=== PATIENT | male | born 1990 | race Caucasian/White ===

== ENCOUNTER → 2020-05-16 10:50 | Outpatient (BNVA) | payer BC, SELFPAY | PROVIDERS: Family Provider Family Medicine; Visit Provider Nurse Practitioner Family | DX: Z11.59 Encounter for screening for other viral diseases (principal) | CPT/HCPCS: 87426 ==

== ENCOUNTER 2020-06-16 13:23 | Outpatient (CLI) | payer BC, SELFPAY ==
--- NOTE | 2020-06-16 14:34 | XR_ITS ---
WS: [id number] Exam: XR foot RT min 3V* [id number] Date/Time of Exam: 06/16/2020 2:34 PM Reason For Exam: RIGHT FOOT PAIN Comparison 03/27/2016. Findings: The foot was examined in multiple views and reveals no fractures or displacements of bone. No bony a nomalies are noted. The bony elements are in adequate alignment. The joint spaces are smooth and eq uidistant. XR/XR foot RT min 3V* [id number] IMPRESSION: Negative right foot.
--- NOTE | 2020-06-16 14:34 | XR_ITS ---
WS: [id number] Exam: XR ankle RT min 3V* [id number] Date/Time of Exam: 06/16/2020 2:34 PM Reason For Exam: RIGHT FOOT PAIN No acute fracture or dislocation. Healed fracture of the lower fibular metaphysis. The ankle mortise is well-maintained. Normal soft tissues. XR/XR ankle RT min 3V* [id number] IMPRESSION: 1. No acute fracture or dislocation. 2. Old healed lower fibular fracture.
== END 2020-06-16 13:24 | disposition home or self-care (01) ==
PROVIDERS: PCP Family Medicine; Visit Provider Family Medicine
DX: M79.671 Pain in right foot (principal)
CPT/HCPCS: 73610; 73630

== ENCOUNTER 2020-11-16 15:48 | Outpatient (CLI) | payer OTHER, SELFPAY ==
--- NOTE | 2020-11-16 15:55 | XR_ITS ---
WS: [id number] Chest 2 views, 11/16/2020 Clinical Data: COUGH, CHRONIC, DYSPNEA Comparison: PA and lateral chest, 09/05/2011. Findings: No nodules, masses or effusions are seen. The heart is normal. The pulmonary vascularity is not increased. No pneumonia or pneumothorax is seen. XR/XR chest 2V* [id number] Impression: Negative chest.
== END 2020-11-16 15:49 | disposition home or self-care (01) ==
PROVIDERS: PCP Family Medicine; Visit Provider Family Medicine
DX: R05 Cough (principal); R06.00 Dyspnea, unspecified
CPT/HCPCS: 71046

== ENCOUNTER → 2020-12-14 16:25 | Outpatient (BNVA) | payer OTHER, SELFPAY | PROVIDERS: PCP Family Medicine; Visit Provider Family Medicine | DX: Z01.812 Encounter for preprocedural laboratory examination (principal); Z20.822 Contact with and (suspected) exposure to COVID-19 | CPT/HCPCS: 87635 ==

== ENCOUNTER 2020-12-20 06:50 | Outpatient (CLI) | payer OTHER, SELFPAY ==
--- NOTE | 2020-12-20 11:07 | PFTS_ITS ---
Date of Study:12/20/20 Date of Dictation: 12/23/2020 MECHANICS: Forced vital capacity (FVC) is normal. Forced expiratory volume in one second (FEV1) is normal. FEV1/FVC is normal. Postbronchodilator study not performed.. FLOW VOLUME LOOP: normal. LUNG VOLUMES: Total lung capacity (TLC) is normal.. Residual volume (RV) is normal.. DIFFUSING CAPACITY FOR CARBON MONOXIDE: normal. . INTERPRETATION: The pulmonary function tests are normal. MTDD
== END 2020-12-20 06:51 | disposition home or self-care (01) ==
LOC: RT 06:53
PROVIDERS: PCP Family Medicine; Visit Provider Family Medicine
DX: R05 Cough (principal); R06.02 Shortness of breath
CPT/HCPCS: 94010; 94726; 94729

== ENCOUNTER 2021-04-07 19:50 | Emergency (ER) | payer OTHER, SELFPAY ==
[2021-04-07 20:32] VITALS: BP 122/82; PULSE 63; RESP 18; TEMP 36.6; O2SAT 98; BMI 29.2
--- NOTE | 2021-04-07 21:20 | ED_ITS ---
Documented by User: PERRY Cameron 04/07/21 22:34 HPI - Male Genitourinary General: Chief complaint: Urogenital-Male Stated complaint: R testical is swollen an painful Time Seen by Provider: 04/07/21 20:58 History of Present Illness: HPI Narrative: Right testicle is painful. Patient states he lifted a generator by himself earlier today and then pain in the testicle started after that. Patient does have a history of epididymitis to the right testicle. Patient has no swelling to the testicle says it just hurts. Denies any sexual contact outside the relationship with his . Has a history of abdominal wall hernia. MD Complaint: testicle pain Onset (ago): hour(s) Duration: constant Radiation: right testicle Severity: moderate Severity scale (1-10): 4 Quality: aching Relieving factors: none Exacerbating factors: none Associated symptoms: Reports no associated symptoms; Deny nausea or vomiting Review of Systems Const: Denies: fever(s), chills or body aches Eyes: Denies: change in vision or blurry vision ENMT: Denies: throat pain or nasal congestion Card: Denies: chest pain or dyspnea on exertion Resp: Denies: dyspnea, productive cough or non-productive cough GI: Denies: abdominal pain, nausea or vomiting : Reports: testicular pain; Denies: difficulty urinating, penile discharge, testicular mass or scrotal swelling Musc: Denies: extremity pain Skin/Breast: Denies: rash Neuro: Denies: headache(s) Psych: Denies: anxiety or depression Jacobo/Lymph: Denies: easy bruising PFS ED PFSH: Medical History (Updated 04/07/21 @ 22:27 by PERRY Cameron) Depression Surgical History (Updated 06/23/20 @ 13:43 by Imani Malone DO) H/O knee surgery Family History Other Diabetes Social History (Updated 06/23/20 @ 13:24 by Tiffany May LPN) Smoking and tobacco status: never smoked Alcohol intake: never Physical Exam Const: COMMON NORMALS: no acute distress, average body habitus and patient oriented x3 HENMT: COMMON NORMALS: normocephalic HEAD & SCALP: normal to inspection and normocephalic FACE & SINUS: normal facial exam Eye: COMMON NORMALS: conjunctivae normal GENERAL EYE: appearance normal, both eyes and all related structures CONJUNCTIVA: Yes conjunctivae normal Neck/C-Spine: COMMON NORMALS: no JVD Chest: COMMONS NORMALS: normal inspection of the chest Resp: COMMON NORMALS: normal respiratory effort and clear to auscultation bilaterally AUSCULTATION: clear to auscultation bilaterally Cardio: COMMON NORMALS: no JVD, regular rate and regular rhythm RATE: regular rate RHYTHM: regular rhythm GI: COMMON NORMALS: Normal to inspection, nondistended, normoactive bowel sounds present (No evidence of hernia noted.) : COMMON NORMALS: Yes scrotum normal and Yes no scrotal swelling PENIS: normal penis SCROTUM: Yes testes descended bilaterally, No inguinal hernia, No Scrotal tenderness present and No erythematous TESTES: No Enlarged testicle(s) present, No testicular swelling, Yes testicular tenderness, No testicular mass, No epididymal mass and Yes epididymal tenderness (Right side) Extremity: COMMON NORMALS: normal to inspection and full ROM Neuro: COMMON NORMALS: patient oriented x3 Course Vital Signs: Vital signs: Vital Signs Temperature 97.9 F 04/07/21 22:30 Pulse Rate 58 L 04/07/21 22:30 Respiratory Rate 16 04/07/21 22:30 Blood Pressure 125/64 04/07/21 22:30 Pulse Oximetry 97 04/07/21 22:30 MDM - Male MDM Narrative: Medical decision making narrative: Patient with past history epididymitis. Patient had onset of testicular pain today Saturday 3 to 5 hours ago. Patient has tenderness to epididymis. No swelling to the testicle. Went over lab results and clinical signs symptoms with Dr. Turk. Patient significant relief with pain medication. Discussed case. Patient given strict instructions to follow-up back of the ER if he has worsening symptoms this morning, such as severe pain. Swelling. Worsening of present symptoms. Patient verbalized he understood these instructions patient [place] 5 miles from the hospital and will return immediately if he has any symptoms he states. Lab Data: Labs: Lab Results 04/07/21 21:30 Urine Color Yellow (Yellow) Urine Appearance Sl hazy (CLEAR) Urine pH 6 (5-7) Ur Specific Gravit y 1.020 (1.005-1.030) Urine Protein Neg (Negative) Urine Glucose (UA) Norm (Normal) Urine Ketones Negative (Negative) Urine Blood 2+ H (Negative) Urine Nitrate Negative (Negative) Urine Bilirubin Neg (Negative) Urine Urobilinogen Norm mg/dL mg/dL (Negative) Ur Leukocyte Nikki ase Negative (Negative) Urine RBC 15-25 /hpf H /hpf (0-2) Urine WBC 0-4 /hpf H /hpf (0-5) Ur Squamous Epith Cells 0-4 /hpf H /hpf (0-5) Amorphous Sediment 3+ /hpf /hpf Urine Bacteria Trace /hpf /hpf (NONE) Discharge Plan Discharge Patient Disposition: Home Clinical Impression: Epididymitis Hematuria Qualifiers: Hematuria type: benign essential microscopic Qualified Code(s): R31.1 - Benign essential microscopic hematuria Condition: Stable Prescriptions: New levofloxacin 500 mg tablet 500 mg PO DAILY 7 Days Qty: 7 RF: 0 tramadol 50 mg tablet 50 mg PO TID PRN (Reason: pain) Qty: 7 RF: 0 No Action amoxicillin 875 mg tablet 875 mg PO BID 10 Days Qty: 20 RF: 0 sertraline 25 mg tablet 25 mg PO DAILY RF: 0 Discharge Orders: Discharge ED (Routine); Ordered 04/07/21 Ordered By: Josep Chang Referrals: Arvind Chung DO [Primary Care Provider] - Discharge Diet: Usual diet Discharge Activity: Increase activity as tolerated Patient Instructions: Epididymitis (ED) Activity Restrictions/Additional Instructions: Take medication as directed. Follow-up your family medical provider repeat urine in 7 to 10 days. If worsening symptoms occur during these morning hours severe pain, swelling testicle, or other worsening symptoms please return the ER immediately. Coding Level of Care Code ED Rope Coiling Machine Operator for Chg Fwd Exam Comprehensive Documented by User: Bill Turk MD 04/10/21 21:29 HPI - Male Genitourinary General: Chief complaint: Urogenital-Male Stated complaint: R testical is swollen an painful Time Seen by Provider: 04/07/21 20:58 PFSH ED PFSH: Medical History (Updated 04/07/21 @ 22:27 by PERRY Cameron) Depression Surgical History (Updated 06/23/20 @ 13:43 by Imani Malone DO) H/O knee surgery Family History Other Diabetes Social History (Updated 06/23/20 @ 13:24 by Tiffany May LPN) Smoking and tobacco status: never smoked Alcohol intake: never Course Vital Signs: Vital signs: Vital Signs Temperature 97.9 F 04/07/21 22:30 Pulse Rate 58 L 04/07/21 22:30 Respiratory Rate 16 04/07/21 22:30 Blood Pressure 125/64 04/07/21 22:30 Pulse Oximetry 97 04/07/21 22:30 MDM - Male MDM Narrative: Medical decision making narrative: I discussed the case with PERRY Cameron. Bill Turk MD Emergency Medicine Lab Data: Labs: Lab Results 04/07/21 21:30 Urine Color Yellow (Yellow) Urine Appearance Sl hazy (CLEAR) Urine pH 6 (5-7) Ur Specific Gravit y 1.020 (1.005-1.030) Urine Protein Neg (Negative) Urine Glucose (UA) Norm (Normal) Urine Ketones Negative (Negative) Urine Blood 2+ H (Negative) Urine Nitrate Negative (Negative) Urine Bilirubin Neg (Negative) Urine Urobilinogen Norm mg/dL mg/dL (Negative) Ur Leukocyte Nikki ase Negative (Negative) Urine RBC 15-25 /hpf H /hpf (0-2) Urine WBC 0-4 /hpf H /hpf (0-5) Ur Squamous Epith Cells 0-4 /hpf H /hpf (0-5) Amorphous Sediment 3+ /hpf /hpf Urine Bacteria Trace /hpf /hpf (NONE) Discharge Plan Discharge Patient Disposition: Home Clinical Impression: Epididymitis Hematuria Qualifiers: Hematuria type: benign essential microscopic Qualified Code(s): R31.1 - Benign essential microscopic hematuria Condition: Stable Prescriptions: New levofloxacin 500 mg tablet 500 mg PO DAILY 7 Days Qty: 7 RF: 0 tramadol 50 mg tablet 50 mg PO TID PRN (Reason: pain) Qty: 7 RF: 0 No Action amoxicillin 875 mg tablet 875 mg PO BID 10 Days Qty: 20 RF: 0 sertraline 25 mg tablet 25 mg PO DAILY RF: 0 Discharge Orders: Discharge ED (Routine); Ordered 04/07/21 Ordered By: Josep Chang Referrals: Arvind Chung DO [Primary Care Provider] - Discharge Diet: Usual diet Discharge Activity: Increase activity as tolerated Patient Instructions: Epididymitis (ED) Activity Restrictions/Additional Instructions: Take medication as directed. Follow-up your family medical provider repeat urine in 7 to 10 days. If worsening symptoms occur during these morning hours severe pain, swelling testicle, or other worsening symptoms please return the ER immediately. Coding Level of Care Code ED Rope Coiling Machine Operator for Ezequiel Fwd Exam Comprehensive
[2021-04-07 21:27] VITALS: BP 105/57; PULSE 58; RESP 14; TEMP 36.6; O2SAT 98
[2021-04-07] MEDS: HYDROcodone-acetaminophen 7.5-325 mg Tablet 1 TAB PO (21:33)
[2021-04-07 22:06] LABS: Add Urine Microscopic? YES; Bilirubin Urine Neg (Negative); Blood Urine 2+ (Negative); Glucose Urine UA Norm (Normal); Ketones Urine Negative (Negative); Leukocyte Esterase Urine Negative (Negative); Nitrate Urine Negative (Negative); Protein Urine Neg (Negative); Urine Appearance SL Hazy (CLEAR); Urine Color Yellow (Yellow); Urobilinogen Urine Norm (Negative); pH Urine 6 (5-7)
[2021-04-07 22:09] LABS: Add Urine Culture? Yes; Amorphous Sediment Urine 3+ /hpf; Bacteria Urine TRACE /hpf; RBC Urine 15-25 /hpf (0-2); Squamous Epithelial Cell Urine 0-4 /hpf (0-5); WBC Urine 0-4 /hpf (0-5)
[2021-04-07 22:30] VITALS: BP 125/64; PULSE 58; RESP 16; TEMP 36.6; O2SAT 97
[2021-04-07] MEDS: HYDROcodone-acetaminophen 5-325 mg Tablet 1 TAB PO (22:35)
[2021-04-07] MEDS: levoFLOXacin 500 mg Tablet PO (22:35)
== END 2021-04-07 22:35 | disposition home or self-care (01) ==
PROVIDERS: Emergency Provider Nurse Practitioner Family; PCP Family Medicine
DX: N45.1 Epididymitis (principal); R31.1 Benign essential microscopic hematuria
CPT/HCPCS: 81001; 87086; 99283

== ENCOUNTER 2021-04-29 15:43 | Emergency (ER) | payer OTHER, SELFPAY ==
[2021-04-29 16:34] VITALS: BP 128/80; PULSE 61; RESP 16; TEMP 36.6; O2SAT 97; BMI 30.1
--- NOTE | 2021-04-29 17:03 | USR_ITS ---
PROCEDURE INFORMATION: Exam: US Scrotum Exam date and time: 04/29/2021 5:03 PM Age: 30 years old Clinical indication: Scrotum pain; Additional info: Testicular pain TECHNIQUE: Imaging protocol: Real-time ultrasound of the scrotum and contents with color Doppler and image documentation. COMPARISON: CT abdomen pelvis w con* [id number] 11/02/2015 1:06 PM FINDINGS: Right testicle: Normal. No mass. No torsion. Normal vascular flow. Left testicle: Normal. No mass. No torsion. Normal vascular flow. Epididymides: Normal. Scrotum: Small bilateral hydroceles US/US scrotum [id number] IMPRESSION: 1. Testicles appear within normal limits 2. Small bilateral hydroceles Radiation Dose CTDIVOL = (mGy): DLP = (mGy-cm)
[2021-04-29 21:26] LABS: Add Urine Microscopic? YES; Bilirubin Urine Neg (Negative); Blood Urine 3+ (Negative); Glucose Urine UA Norm (Normal); Ketones Urine Negative (Negative); Leukocyte Esterase Urine Negative (Negative); Nitrate Urine Negative (Negative); Protein Urine Neg (Negative); Specific Gravity, Urine 1.025 (1.005-1.030); Urine Appearance Clear (CLEAR); Urine Color Yellow (Yellow); Urobilinogen Urine Norm (Negative); pH Urine 5 (5-7)
[2021-04-29 21:59] LABS: Add Urine Culture? Yes; Bacteria Urine t /hpf; RBC Urine 50-80 /hpf (0-2); Squamous Epithelial Cell Urine 0-4 /hpf (0-5); WBC Urine 0-4 /hpf (0-5)
[2021-04-29 22:25] VITALS: BP 121/80; PULSE 54; RESP 16; O2SAT 97
--- NOTE | 2021-04-29 23:09 | W.ED.MALEGU ---
Documented by User: PERRY Berry 04/30/21 00:22 HPI - Male Genitourinary General: Chief complaint: Urogenital-Male Stated complaint: Rt testicle Pain\Swollen Time Seen by Provider: 04/29/21 23:09 History of Present Illness: HPI Narrative: 30-year-old male patient comes in today for concerns of right groin testicle pain. Patient states 3 weeks ago he started having pain that was radiating down to his groin and right testicle. Patient was 1st seen in the ER and they diagnosed him with epididymitis. No imaging was done at that time. Patient had followed up with primary care and they suspect that he had a muscle strain or tear. Patient was ordered some hydrocodone to help with this pain and antibiotics to treat the epididymitis. Patient appears well. Patient appears in no acute distress at this time. Patient has recently taken a hydrocodone prior to my evaluation due to the persistent and severe pain. Patient states the pain medicine does help him when he takes it. MD Complaint: testicle pain Review of Systems General: Reports: 10 or more systems reviewed and unremarkable except in HPI and below : Reports: other (Right testicular pain) [facility] ED PFSH: Medical History (Updated 04/29/21 @ 23:55 by PERRY Berry) Depression Surgical History (Updated 06/23/20 @ 13:43 by Imani Malone DO) H/O knee surgery Family History Other Diabetes Social History (Updated 06/23/20 @ 13:24 by Tiffany May LPN) Smoking and tobacco status: never smoked Alcohol intake: never Physical Exam Const: COMMON NORMALS: no acute distress and patient oriented x3 GENERAL APPEARANCE: cooperative HENMT: COMMON NORMALS: normocephalic, TM's normal bilaterally and Normal external nose present HEAD & SCALP: normal to inspection and normocephalic NOSE: Normal external nose present TYMPANIC MEMBRANE: TM's normal bilaterally MOUTH: Normal oral and palatal mucosa present THROAT: posterior oropharynx normal Eye: GENERAL EYE: appearance normal, both eyes and all related structures Neck/C-Spine: COMMON NORMALS: full ROM Lymph: LYMPHATIC: no lymphadenopathy noted Chest: COMMONS NORMALS: normal inspection of the chest Resp: COMMON NORMALS: normal respiratory effort EFFORT & INSPECTION: Yes able to speak in complete sentences Cardio: COMMON NORMALS: regular rate and regular rhythm RATE: regular rate RHYTHM: regular rhythm GI: PALPATION: Yes Tenderness to palpation present (GI) Details: RLQ : COMMON NORMALS: Yes no CVA tenderness BLADDER/KIDNEY EXAM: Yes no CVA tenderness Back/Pelvis: COMMON NORMALS: no CVA tenderness and thoracic and lumbar spine normal to inspection Extremity: COMMON NORMALS: normal to inspection Neuro: COMMON NORMALS: patient oriented x3 and moves all extremities Psych: COMMON NORMALS: mental status grossly normal and cooperative Skin: COMMON NORMALS: no rashes or lesions noted GENERAL SKIN EXAM: no rashes or lesions noted Course ED course: 0, reviewed labs and ultrasound with patient. On discussion it was found that patient had some pain that radiated from his flank to the groin and into the testicle. Blood did show in the urine. I suspect a renal calculi. I recommended further evaluation with CT of the abdomen and pelvis to rule out renal calculi. Patient reported understanding and agreed to plan. Vital Signs: Vital signs: Vital Signs Temperature 97.8 F 04/29/21 16:34 Pulse Rate 58 L 04/30/21 00:05 Respiratory Rate 16 04/30/21 00:05 Blood Pressure 124/77 04/30/21 00:05 Pulse Oximetry 97 04/30/21 00:05 MDM - Male MDM Narrative: Medical decision making narrative: 30-year-old male patient comes in with some right low back pain radiating into his groin and testicle. On exam abdomen is soft with some right lower quadrant abdominal pain. Vitals were normal. Differential diagnosis includes but not limited to renal calculi, testicular torsion, epididymitis, muscle strain. Ultrasound of the testicle was negative for torsion. Urinalysis was positive for blood. Recommended renal CT which showed a 2.7 mm mid ureter stone. Reviewed exam with patient with recommendations for treatment plan and follow-up with Dr. Georges. Case management was requested for appointment. Patient reported understanding of care plan and need for follow-up for further management. Lab Data: Labs: Lab Results 04/29/21 20:35 Urine Color Yellow (Yellow) Urine Appearance Clear (CLEAR) Urine pH 5 (5-7) Ur Specific Gravit y 1.025 (1.005-1.030) Urine Protein Neg (Negative) Urine Glucose (UA) Norm (Normal) Urine Ketones Negative (Negative) Urine Blood 3+ H (Negative) Urine Nitrate Negative (Negative) Urine Bilirubin Neg (Negative) Urine Urobilinogen Norm mg/dL mg/dL (Negative) Ur Leukocyte Nikki ase Negative (Negative) Urine RBC 50-80 /hpf H /hpf (0-2) Urine WBC 0-4 /hpf H /hpf (0-5) Ur Squamous Epith Cells 0-4 /hpf H /hpf (0-5) Amorphous Sediment Not Reportable Urine Bacteria t /hpf /hpf (NONE) Discharge Plan Discharge Patient Disposition: Home Clinical Impression: Right ureteral calculus Condition: Stable Prescriptions: New hydrocodone-acetaminophen 5-325 mg tablet 1 tab PO Q6H PRN (Reason: pain (scale score 7-10)) Qty: 14 RF: 0 ondansetron 4 mg tablet,disintegrating 4 mg PO Q8H PRN (Reason: nausea and vomiting) Qty: 10 RF: 0 No Action amoxicillin 875 mg tablet 875 mg PO BID 10 Days Qty: 20 RF: 0 sertraline 25 mg tablet 25 mg PO DAILY RF: 0 tramadol 50 mg tablet 50 mg PO TID PRN (Reason: pain) Qty: 7 RF: 0 Discharge Orders: Discharge ED (Routine); Ordered 04/29/21 Ordered By: Marco Antonio Amin Referrals: Arvind Chung DO [Primary Care Provider] - Discharge Diet: Usual diet Discharge Activity: Increase activity as tolerated Patient Instructions: Kidney Stones (ED), Opioid Safety Activity Restrictions/Additional Instructions: Take medication as directed. Drink plenty of fluids. Follow-up with primary care as needed. Case management will contact you regarding appointment for follow-up with urologist for monitoring and further treatment. Return to the ER as needed for uncontrolled pain, high fever, or new concerns. Coding Level of Care Code ED Printed Circuit Boards Beveler for Chg Fwd Exam Comprehensive Documented by User: Lenny Paez DO 04/30/21 01:13 HPI - Male Genitourinary General: Chief complaint: Urogenital-Male Stated complaint: Rt testicle Pain\Swollen Time Seen by Provider: 04/29/21 23:09 PFS ED PFSH: Medical History (Updated 04/29/21 @ 23:55 by PERRY Berry) Depression Surgical History (Updated 06/23/20 @ 13:43 by Imani Malone DO) H/O knee surgery Family History Other Diabetes Social History (Updated 06/23/20 @ 13:24 by Tiffany May LPN) Smoking and tobacco status: never smoked Alcohol intake: never Course Vital Signs: Vital signs: Vital Signs Temperature 97.8 F 04/29/21 16:34 Pulse Rate 58 L 04/30/21 00:05 Respiratory Rate 16 04/30/21 00:05 Blood Pressure 124/77 04/30/21 00:05 Pulse Oximetry 97 04/30/21 00:05 MDM - Male MDM Narrative: Medical decision making narrative: This patient was originally seen by PERRY Reyes. I agree with his history, evaluation, and treatment. Lab Data: Labs: Lab Results 04/29/21 20:35 Urine Color Yellow (Yellow) Urine Appearance Clear (CLEAR) Urine pH 5 (5-7) Ur Specific Gravit y 1.025 (1.005-1.030) Urine Protein Neg (Negative) Urine Glucose (UA) Norm (Normal) Urine Ketones Negative (Negative) Urine Blood 3+ H (Negative) Urine Nitrate Negative (Negative) Urine Bilirubin Neg (Negative) Urine Urobilinogen Norm mg/dL mg/dL (Negative) Ur Leukocyte Nikki ase Negative (Negative) Urine RBC 50-80 /hpf H /hpf (0-2) Urine WBC 0-4 /hpf H /hpf (0-5) Ur Squamous Epith Cells 0-4 /hpf H /hpf (0-5) Amorphous Sediment Not Reportable Urine Bacteria t /hpf /hpf (NONE) Discharge Plan Discharge Patient Disposition: Home Clinical Impression: Right ureteral calculus Condition: Stable Prescriptions: New hydrocodone-acetaminophen 5-325 mg tablet 1 tab PO Q6H PRN (Reason: pain (scale score 7-10)) Qty: 14 RF: 0 ondansetron 4 mg tablet,disintegrating 4 mg PO Q8H PRN (Reason: nausea and vomiting) Qty: 10 RF: 0 No Action amoxicillin 875 mg tablet 875 mg PO BID 10 Days Qty: 20 RF: 0 sertraline 25 mg tablet 25 mg PO DAILY RF: 0 tramadol 50 mg tablet 50 mg PO TID PRN (Reason: pain) Qty: 7 RF: 0 Discharge Orders: Discharge ED (Routine); Ordered 04/29/21 Ordered By: Marco Antonio Amin Referrals: Arvind Chung DO [Primary Care Provider] - Discharge Diet: Usual diet Discharge Activity: Increase activity as tolerated Patient Instructions: Kidney Stones (ED), Opioid Safety Activity Restrictions/Additional Instructions: Take medication as directed. Drink plenty of fluids. Follow-up with primary care as needed. Case management will contact you regarding appointment for follow-up with urologist for monitoring and further treatment. Return to the ER as needed for uncontrolled pain, high fever, or new concerns. Coding Level of Care Code ED [employer] Beveler for Ezequiel Fwd Exam Comprehensive
--- NOTE | 2021-04-29 23:16 | CTR_ITS ---
PROCEDURE INFORMATION: Exam: CT Abdomen And Pelvis Without Contrast Exam date and time: 04/29/2021 11:16 PM Age: 30 years old Clinical indication: Abdominal pain; Right; Patient HX: C/O intermittent R flank/groin pain w hematuria; Additional info: Right flank, radiating to groin pain TECHNIQUE: Imaging protocol: Computed tomography of the abdomen and pelvis without contrast. Radiation optimization: All CT scans at this facility use at least one of these dose optimization techniques: automated exposure control; mA and/or kV adjustment per patient size (includes targeted exams where dose is matched to clinical indication); or iterative reconstruction. COMPARISON: CT abdomen pelvis w con* [id number] 11/02/2015 1:06 PM RADIATION DOSE METRICS: Total DLP (mGy-cm): 1559.04 FINDINGS: Liver: Hepatic steatosis. Gallbladder and bile ducts: Normal. No calcified stones. No ductal dilation. Pancreas: Normal. No ductal dilation. Spleen: Normal. No splenomegaly. Adrenal glands: Normal. No mass. Kidneys and ureters: Right mid ureter 2.7 mm calculus at the level of the pelvic brim without significant hydronephrosis or hydroureter. Stomach and bowel: Unremarkable. No obstruction. No mucosal thickening. Appendix: No evidence of appendicitis. Intraperitoneal space: Unremarkable. No free air. No significant fluid collection. Vasculature: Unremarkable. No abdominal aortic aneurysm. Lymph nodes: Unremarkable. No enlarged lymph nodes. Urinary bladder: Unremarkable as visualized. Reproductive: Unremarkable as visualized. Bones/joints: Unremarkable. No acute fracture. Soft tissues: Unremarkable. CT/CT kidney stone [id number] IMPRESSION: 1. Right mid ureter 2.7 mm calculus at the level of the pelvic brim without significant hydronephrosis or hydroureter. 2. Hepatic steatosis. Radiation Dose CTDIVOL = (mGy): DLP = 1559.04 (mGy-cm)
[2021-04-30 00:05] VITALS: BP 124/77; PULSE 58; RESP 16; O2SAT 97
--- NOTE | 2021-05-01 11:24 | DCPLANNER ---
manager administrative had message to schedule a followup appointment for patient with Dr. Georges. manager administrative called the office of Dr. Georges, spoke with Shona, gave clinic patients information. manager administrative was told that patients information would be printed and reviewed. Clinic will call patient with appointment information.
--- NOTE | 2021-05-03 13:26 | DCPLANNER ---
Patient had a follow up appointment scheduled for 05.02.[address] Georges - patient did attend appointment.
== END 2021-04-30 00:07 | disposition home or self-care (01) ==
PROVIDERS: Emergency Provider Nurse Practitioner Family; PCP Family Medicine
DX: N50.811 Right testicular pain (principal); N20.1 Calculus of ureter
CPT/HCPCS: 74176; 76870; 81001; 87086; 87491; 87591; 93976; 99283

== ENCOUNTER 2021-05-02 06:55 | Outpatient (CLI) | payer OTHER, SELFPAY ==
--- NOTE | 2021-05-02 07:00 | XR_ITS ---
WS: [id number] Exam: XR KUB [id number] Date/Time of Exam: 05/02/2021 7:05 AM Reason For Exam: STONES No bowel obstruction or free air. No sign of organ enlargement. No calcifications are noted in the re gion of the kidneys. Nonspecific small pelvic calcifications. Regional bony elements are intact. XR/XR KUB [id number] IMPRESSION: 1. No acute abdominal finding. 2. No calcifications noted in the region of the kidneys.
== END 2021-05-02 06:56 | disposition home or self-care (01) ==
PROVIDERS: PCP Family Medicine; Visit Provider Urology
DX: N20.1 Calculus of ureter (principal); Z20.822 Contact with and (suspected) exposure to COVID-19
CPT/HCPCS: 74018; 81003; 87635

== ENCOUNTER 2021-05-04 10:29 | Day surgery (SDC) | payer OTHER, SELFPAY ==
[2021-05-03 17:15] VITALS: BMI 30.8
[2021-05-04] VITALS (10 sets, daily range): BP systolic 111–143; BP diastolic 71–94; PULSE 45–58; RESP 10–20; TEMP 36.6–36.8; O2SAT 92–97
--- NOTE | 2021-05-04 | SCC_ITS ---
Procedure Done: 1. Cystoscopy with right retrograde ureteropyelogram 2. Right ureteroscopy with stone manipulation 3. Right ureteral stent placement (4.5 x 28 cm double-pigtail with string attached) 41.2 seconds of fluoroscopic guidance, for a cumulative dose of 10.91 mGy, was provided to Dr. Georges by the radiology department. C-arm images of the abdomen were saved for the patient's permanent record. [facility]
--- NOTE | 2021-05-04 10:51 | XR_ITS ---
WS: [id number] Exam: XR KUB [id number] Date/Time of Exam: 05/04/2021 10:51 AM Reason For Exam: Preop right ureteroscopy Comparison 05/02/2021. No bowel obstruction or free air. No calcifications seen in the region of the kidneys. No sign of org an enlargement. Regional bony structures appear normal. XR/XR KUB [id number] IMPRESSION: 1. Negative KUB.
--- NOTE | 2021-05-04 10:51 | SC_ITS ---
WS: [id number] Exam: C-arm [facility] for Urology Date/Time of Exam: 05/04/2021 10:51 AM Reason For Exam: Right ureteroscopy There are 3 Limited C-arm images of the right pelvis in the AP projection submitted for evaluation. The first image demonstrates contrast injection into the distal right ureter. A small filling defect is seen just superior to the right pubic ramus and may represent an air bubble or retained stone. 2 a dditional images depict a right ureteral stent catheter in place extending into the expected region o f the right kidney. The lower aspect the catheter is out of the [id number]-[id number]. SC/C-arm FL for Urology IMPRESSION: 1. Retrograde injection of contrast into the distal right ureter shows a fillin g defect just above the right pubic ramus which may represent a retained stone. Subsequent images demonstrate a retrograde catheter in the mid and upper right ureter.
[2021-05-04] MEDS: sodium chloride 0.9% 1,000 ML 30 ML IV (11:19)
--- NOTE | 2021-05-04 12:13 | W.PM.OPSUD ---
Surgery/Procedure H&P Update DATE OF PROCEDURE: May 04, 2021 DATE H&P PERFORMED: 05/02/21 H&P UPDATE INFORMATION: I have reviewed H&P completed within last 30 days, I have examined patient prior to procedure, No changes to prior documentation and H&P is in [facility] EMR on date indicated CHANGES TO PREVIOUS DOCUMENTATION: KUB preoperatively performed shows calcification roughly in the same area. PREOP DIAGNOSIS: Refractory right ureteral calculus PLANNED PROCEDURE: Operation Date: 05/04/21 12:00 Proposed Procedures p Laser Lithotripsy 82840 49739 N20.1(Right) - Star Georges MD s Cystoscopy(Right) - MD ashleigh Marie Retrograde Pyelogram(Right) - Stra Georges MD s Ureteroscopy(Right) - Star Georges MD s Ureteral Stent Placement(Right) - Star Georges MD
[2021-05-04] MEDS: levofloxacin-dextrose 5 % 500 MG/100 ML PREMIX 100 MG IV (12:45)
[2021-05-04] MEDS: iohexol 300 mg/mL 50 mL Btl (OR ONLY) XX (13:15)
--- NOTE | 2021-05-04 13:27 | P.ANESASSM_ITS ---
Pre-Anesthetic Assessment Pre-Anesthetic Assessment: Height/Weight: Height 1.78 m Weight 97.522 kg Temp Pulse Resp BP Pulse Ox 97.9 F 58 L 16 143/80 97 05/04/21 10:50 05/04/21 10:50 05/04/21 10:50 05/04/21 10:50 05/04/21 10:50 Preop Diagnosis: Refractory right ureteral calculus Proposed Procedure: Operation Date: 05/04/21 12:00 Proposed Procedures p Laser Lithotripsy 03720 09606 N20.1(Right) - Star Georges MD s Cystoscopy(Right) - Star Georges MD s Retrograde Pyelogram(Right) - MD ashleigh Marie Ureteroscopy(Right) - Star Georges MD s Ureteral Stent Placement(Right) - Star Georges MD Was Beta Hari taken within 24 hours: N/A Was Clonidine taken within 24 hours: N/A Last intake: Intake Last Liquid Date 05/03/21 Last Liquid Time 23:00 Last Solid Date 05/03/21 Last Solid Time 19:00 Social: Social History: No alcohol and No tobacco Exam: Pre-Anes Outpt Exam: alert, oriented x 3, clear to auscultation bilat erally and regular rate & rhythm Airway: Submandibular: WNL Cervical ROM: WNL MP: 2 Dentition: Full Neuropsych: Neuropsych: Anxiety and Depression Anesthetic Plan: ASA status: 2 Anesthesia: General Risk of > 500 ml blood loss (7ml/kg in children): No Meds/Allergies Current Medications: Current Medications Generic Name Dose Route Start Last Admin Trade Name Freq PRN Reason Stop Dose Admin Sodium Chloride 1,000 mls @ 30 ml s/hr 05/04/21 11:00 05/04/21 11:19 Sodium Chloride 0.9% IV 05/05/21 10:59 30 mls/hr .Q24H POLO Administration PFSH Anesthesia PFSH: Medical History Depression Surgical History H/O knee surgery Family History Other Diabetes Social History Smoking and tobacco status: never smoked Alcohol intake: never Marital status: Current occupational status: employed History of recent travel: No Data Anesthesia Cardiac Studies: No Data to Display
--- NOTE | 2021-05-04 13:34 | P.OP_ITS ---
Operative Report Date of procedure: May 04, 2021 Pre-op Diagnosis: Refractory right ureteral calculus Post-op diagnosis: same Procedure Done: 1. Cystoscopy with right retrograde ureteropyelogram 2. Right ureteroscopy with stone manipulation 3. Right ureteral stent placement (4.5 x 28 cm double-pigtail with string attached) Pathology: Right ureteral stone Surgeon: José Manuel Anesthesia: General Estimated blood loss: Minimal Urine output: Not measured Complications: None Findings: Stone located in the expected position. No other gross pathology identified. Removed without difficulty after dilation of the distal ureter. 4.5 Bruneian by 28 cm double-pigtail stent left indwelling at the completion of the procedure. Condition: stable Disposition: PACU Brief History: Neil is a very pleasant 30-year-old white male recently identified to have a right distal ureteral stone measuring about 2.6 mm and causing typical obstructive symptoms ongoing times approximately 3 weeks by the time I saw him for the first time. Stone had progressed somewhat from the CT scan location over the sacrum and to the distal ureter but failed to progress. Ultimately because of the refractory nature of the symptoms he elected to proceed with treatment after prolonged conservative trial. Endoscopic approach was decided based on the small size of the stone and the possibility of distal ureteral narrowing given the lack of passage of the stone over an extended period of time Procedure: After routine preoperative evaluation examination and obtaining of informed consent he was taken to the operating suite on 05/04/2021 where general anesthesia was administered without difficulty. Prepped and draped in usual sterile fashion in dorsolithotomy position paying careful attention to avoiding pressure points. Appropriate timeout was performed, SCDs confirmed to be functioning, preoperative antibiotics administered, beta-osmany protocol confirmed. 21 Bruneian cystoscope with 30 degree lens was introduced into the urethral meatus and advanced into the bladder to videoscopy. Bladder was systematically examined and there were no stones in the bladder. Bladder wall looked normal. An 8 Bruneian cone-tip catheter was intubated into the right ureteral orifice for right retrograde ureteropyelogram which demonstrated normal course and caliber of the very distal ureter with a filling defect consistent with a stone in the expected position in the distal ureter. Proximal to that the ureter was dilated. No other filling defects identified. Flexible tip guidewire was then advanced up the right ureter without difficulty bypassing the stone. A 15 Bruneian 4 cm balloon was then used to dilate the distal ureter below the level of the stone. The scope was removed the wire secured to the drapes as a safety wire and a 7.5 Bruneian offset semirigid ureteroscope was easily advanced up the right ureter where the stone was encountered and secured in a basket and removed without tension. Scope was again repassed just to confirm no additional stones and to assess the status of the ureter. There was some inflammation with the dilation was performed and it was decided to leave a small stent (4.5 Bruneian) indwelling at the completion of the procedure. It was decided to leave a string on. Cystoscope was then backloaded over the guidewire and a 4.5 Bruneian by 28 cm double-pigtail stent was left indwelling bypassing over the guidewire through the cystoscope into appropriate position as confirmed via fluoroscopy and cystoscopy. String was left attached. Stent was confirmed to be draining. Bladder was drained and the procedure was completed. The string was shortened. He tolerated the procedure well without complications and was awakened in the operating room and returned to the recovery room in stable condition. PLANS: 1. Dissipate discharge from outpatient surgery 2. Follow-up early next week for stent removal with string unless he prefers to do it himself at home. Would recommend that the stent stay in at least 5 days.
--- NOTE | 2021-05-04 13:46 | P.PCN_ITS ---
Documented by User: Nacho Delong CRNA 05/04/21 13:47 PACU note PACU note: VSS, Good respiratory effort, report to FIRST AID OFFICER Post-Anesthesia Exam: awake
--- NOTE | 2021-05-04 13:46 | PM.PACU ---
Documented by User: Nacho Delong CRNA 05/04/21 13:47 PACU note PACU note: VSS, Good respiratory effort, report to FLIGHT SERVICE SPECIALIST Post-Anesthesia Exam: awake
--- NOTE | 2021-05-04 13:50 | SUR.PHASEI ---
1343 PT AWAKE ALERT , C/O OF PAIN TO LOWER ANT ABD AND URGENCY, SEE PAIN MED GIVEN BY Kale HAYS CRNA AT BEDSIDE, VSS ABD SOFT PT REQUESTS URINAL, PT ASSISTED WITH URINAL , PT UNABLE TO VOID AT THIS TIME, 1352 PT SLEEPS WITH GOOD RESP EFFORT, VSS.
--- NOTE | 2021-05-04 14:21 | ANE.PACU2 ---
Inpatient post-anesthesia follow up: Airway intact: Yes Vital signs: Temperature 97.8 F Pulse Rate 50 Respiratory Rate 16 Blood Pressure 131/81 Pulse Oximetry 92 Oxygen Delivery Me thod Room Air Oxygen Flow Rate 8 Fraction of Inspir ed Oxygen Hydration adequate: Yes Nausea and vomiting: No Pain level: 3 Mental status: Baseline
[2021-05-04] MEDS: HYDROmorphone 1 mg/mL INJ 1 mL 0.5 MG IVP (14:27)
[2021-05-04] MEDS: ondansetron 2 mg/ML SDV 2 mL 4 MG IVP (14:28)
[2021-05-04] MEDS: HYDROcodone-acetaminophen 5-325 mg Tablet 1 TAB PO (14:41)
[2021-05-10 02:42] LABS: Stone Source RIGHT URETER
== END 2021-05-04 15:28 | disposition home or self-care (01) ==
PROVIDERS: PCP Family Medicine; Visit Provider Urology
PROC: 0TJB8ZZ Inspection of Bladder, Via Natural or Artificial Opening Endoscopic (ICD-10-PCS; CPT 52000; 2021-05-04 12:00)
PROC: (CPT 74420; 2021-05-04 12:00)
PROC: 0TJ98ZZ Inspection of Ureter, Via Natural or Artificial Opening Endoscopic (ICD-10-PCS; CPT 52351; 2021-05-04 12:00)
PROC: (CPT 50605; 2021-05-04 12:00)
DX: R10.9 Unspecified abdominal pain (principal)
CPT/HCPCS: 52320; 74018; 76000; 82365; 88300; 88307; C2625; J1100; J1170; J1956; J2405; J2704; J2710; J3010; J3490; J7030

== ENCOUNTER 2021-08-07 08:54 | Outpatient (CLI) | payer OTHER, SELFPAY ==
--- NOTE | 2021-08-07 09:01 | XR_ITS ---
WS: [id number] Exam: XR KUB [id number] Date/Time of Exam: 08/07/2021 9:05 AM Reason For Exam: RIGHT URETERAL CALCULUS No bowel obstruction or free air. No sign of organ enlargement. Opaque material noted in the large jamie wel. Bony structures are intact. XR/XR KUB [id number] IMPRESSION: 1. No acute abdominal finding.
== END 2021-08-07 08:55 | disposition home or self-care (01) ==
LOC: RAD 09:00
PROVIDERS: PCP Family Medicine; Visit Provider Urology
DX: N20.1 Calculus of ureter (principal)
CPT/HCPCS: 74018; 81003

== ENCOUNTER 2021-08-09 07:12 | Outpatient (CLI) | payer OTHER, SELFPAY ==
--- NOTE | 2021-08-09 07:15 | XR_ITS ---
WS: [id number] Exam: XR KUB [id number] Date/Time of Exam: 08/09/2021 7:23 AM Reason For Exam: stones Comparison 08/07/2021. No sign of bowel obstruction or free air. No obvious calcifications noted in the region of the kidney s. No sign of organ enlargement. Regional bony elements appear normal. XR/XR KUB [id number] IMPRESSION: 1. No acute abdominal finding.
== END 2021-08-09 07:13 | disposition home or self-care (01) ==
LOC: RAD 07:13
PROVIDERS: PCP Family Medicine; Visit Provider Nurse Practitioner Family
DX: N20.9 Urinary calculus, unspecified (principal)
CPT/HCPCS: 74018; 81003

== ENCOUNTER → 2021-08-14 08:43 | Outpatient (BNVA) | payer OTHER, SELFPAY | PROVIDERS: PCP Family Medicine; Visit Provider Family Medicine | DX: Z20.828 Contact with and (suspected) exposure to other viral communicable diseases (principal); R50.9 Fever, unspecified; R11.2 Nausea with vomiting, unspecified | CPT/HCPCS: 87635 ==

== ENCOUNTER → 2021-10-04 14:15 | Outpatient (BNVA) | payer OTHER, SELFPAY | PROVIDERS: PCP Family Medicine; Referring Provider Family Medicine; Visit Provider Orthopaedic Surgery | DX: S89.91XA Unspecified injury of right lower leg, initial encounter (principal); X58.XXXA Exposure to other specified factors, initial encounter | CPT/HCPCS: 73560; 73565 ==

== ENCOUNTER 2021-10-28 14:11 | Outpatient (CLI) | payer OTHER, SELFPAY ==
--- NOTE | 2021-10-28 14:45 | MR_ITS ---
WS: [id number] MRI LEFT KNEE NONCONTRAST TECHNIQUE: Axial PD, coronal PD fat sat, coronal PD, sagittal PD, and sagittal PD fat-sat images obta ined. CLINICAL INFORMATION: pain COMPARISON: None. FINDINGS: Distal quadriceps and patella tendons are intact. Small amount of edema along the suprapatellar fat p ad. Small amount of prepatellar soft tissue edema. Normal ACL. Normal PCL. Medial and lateral meniscu s appear intact. No acute appearing meniscal tears. Normal bone marrow signal in the femoral condyles and tibial plateaus. Normal medial and lateral cecelia ateral ligaments. No significant chondromalacia patella. Normal patella. Normal medial and lateral pa tellar retinaculum. Normal popliteal fossa. No significant joint effusion. MR/MR knee LT wo con* [id number] IMPRESSION: 1. Normal ACL and PCL. 2. Small amount of prepatellar soft tissue edema. Distal quadriceps and patell a tendons appear intact. Small amount of edema along the suprapatellar fat pad. 3. No acute appearing meniscal tears. 4. Normal popliteal fossa. 5. Normal medial and lateral collateral ligaments. Normal popliteus. 6. No other significant findings. Outbridge grading: grade I: focal areas of hyperintensity with normal contour
== END 2021-10-28 14:12 | disposition home or self-care (01) ==
PROVIDERS: PCP Family Medicine; Visit Provider Orthopaedic Surgery
DX: S89.90XA Unspecified injury of unspecified lower leg, initial encounter (principal); X58.XXXA Exposure to other specified factors, initial encounter
CPT/HCPCS: 73721

== ENCOUNTER → 2022-02-21 11:30 | Outpatient (BNVA) | payer OTHER, SELFPAY | PROVIDERS: PCP Family Medicine; Visit Provider Emergency Medicine | DX: J02.9 Acute pharyngitis, unspecified (principal) | CPT/HCPCS: 87071; 87880 ==

== ENCOUNTER 2023-03-03 08:00 | Emergency (ER) | payer OTHER, BC, MEDICAID, SELFPAY ==
[2023-03-03 08:03] VITALS: BP 132/83; PULSE 63; RESP 17; TEMP 36.6; O2SAT 97; BMI 32.3
--- NOTE | 2023-03-03 08:18 | ED_ITS ---
HPI - Neck Pain/Injury General: Chief Complaint: Neck Pain/Injury Stated Complaint: neck pain Time Seen by Provider: 03/03/23 08:02 Source: patient Mode of arrival: ambulatory Limitations: no limitations History of Present Illness: 32-year-old male states he was working on his truck 2 days ago felt a strain in his right neck. He states he woke up yesterday morning with worsening pain and then woke up this morning with hip and worse pain. He states pain is very sharp in nature going down his right side of his neck. His pain is much worse with any movement of his head. Is improved with rest he rates the pain a 6 out of 10 currently. Denies any numbness or weakness in his right arm. Associated symptoms: Denies headache(s) or nausea Review of Systems Const: Denies: fever(s) or chills ENMT: Denies: throat pain or dental pain Card: Denies: chest pain Resp: Denies: dyspnea GI: Denies: abdominal pain, nausea, vomiting or diarrhea Musc: Reports: neck pain; Denies: back pain Skin/Breast: Denies: rash Neuro: Denies: headache(s) PFSH ED PFSH: Medical History Depression Surgical History H/O knee surgery Family History Other Diabetes Social History Smoking and tobacco status: current every day smoker Alcohol intake: never Marital status: Current occupational status: employed Physical Exam Const: COMMON NORMALS: no acute distress, patient oriented x3 and healthy appearing HENMT: COMMON NORMALS: normocephalic and atraumatic HEAD & SCALP: normocephalic and atraumatic Eye: COMMON NORMALS: conjunctivae normal CONJUNCTIVA: Yes conjunctivae normal Neck/C-Spine: OTHER: Point tender over the right side of the neck along the trapezius muscle he has pain with movement of his neck no midline cervical tenderness Chest: COMMONS NORMALS: normal inspection of the chest Resp: COMMON NORMALS: normal respiratory effort Cardio: COMMON NORMALS: No murmurs present (Cardio) Extremity: COMMON NORMALS: normal to inspection and full ROM Neuro: COMMON NORMALS: patient oriented x3, moves all extremities and no focal motor deficits Psych: COMMON NORMALS: mental status grossly normal, Normal thought process present and cooperative THOUGHT PROCESS: Normal thought process present Skin: COMMON NORMALS: no rashes or lesions noted and no wounds GENERAL SKIN EXAM: no rashes or lesions noted Course Vital Signs: Vital signs: Vital Signs Temperature 97.9 F 03/03/23 08:03 Pulse Rate 63 03/03/23 08:03 Respiratory Rate 03/03/23 08:03 Blood Pressure 132/83 03/03/23 08:03 Pulse Oximetry 97 03/03/23 08:03 Oxygen Delivery Me thod Room Air 03/03/23 08:03 MDM - Neck Pain/Injury Medical Decision Making Patient presents here with right-sided neck pain is likely muscular in nature we will place him on Naprosyn along with Robaxin he is to follow-up with PCP and return if worsening. No radiology studies performed this visit Discharge Plan Discharge Patient Disposition: Home Clinical Impression: Strain of neck muscle Condition: Stable Prescriptions: New methocarbamol 750 mg tablet 750 mg PO Q6H PRN (Reason: spasms) Qty: 20 0RF naproxen [Naprosyn] 500 mg tablet 500 mg PO BID PRN (Reason: pain) Qty: 20 0RF No Action sertraline 100 mg tablet See Rx Instructions .ROUTE .COMPLEX Qty: 90 1RF Dose Instruction: TAKE 1 TABLET BY MOUTH EVERY DAY Rx Instructions: TAKE 1 TABLET BY MOUTH EVERY DAY Discharge Orders: Discharge ED (Routine); Ordered 03/03/23 Ordered By: Eitan Cabral Referrals: Arvind Chung DO [Primary Care Provider] - 1-3 days Discharge Diet: Advance as tolerated Discharge Activity: Resume usual activity Patient Instructions: Cervical Strain (ED) Coding Level of Care Code ED Insurance Job Titles for Ezequiel Wynn
[2023-03-03] MEDS: ketorolac 60 mg/2 mL INJ IM (08:22)
== END 2023-03-03 08:29 | disposition home or self-care (01) ==
PROVIDERS: Emergency Provider Emergency Medicine; PCP Family Medicine
DX: S16.1XXA Strain of muscle, fascia and tendon at neck level, initial encounter (principal); F17.210 Nicotine dependence, cigarettes, uncomplicated; X50.9XXA Other and unspecified overexertion or strenuous movements or postures, initial encounter
CPT/HCPCS: 96372; 99284; J1885

== ENCOUNTER → 2024-02-20 13:47 | Outpatient (BNVA) | payer BC, MEDICAID, SELFPAY | PROVIDERS: PCP Family Medicine; Visit Provider Nurse Practitioner Family | DX: Z87.442 Personal history of urinary calculi (principal); R30.0 Dysuria; R10.30 Lower abdominal pain, unspecified | CPT/HCPCS: 74018; 80053; 81000; 84153; 85025 ==

== ENCOUNTER 2024-02-21 08:26 | Outpatient (CLI) | payer SELFPAY ==
--- NOTE | 2024-02-21 08:38 | XR_ITS ---
WS: [id number] Examination: XR lumbar spine 2-3V* [id number] Reason for Exam: M54.50 - Low back pain, unspecified Date: 02/21/2024 Comparison: None. Findings: The bone density and the pedicles are intact. The SI joints are symmetric. There is no lumbar wedging or compression. Alignment is satisfactory without subluxation. The disc base heights are maintained XR/XR lumbar spine 2-3V* [id number] Impression: No compression or subluxation is identified. No significant degenerative change s are present.
--- NOTE | 2024-02-21 08:38 | XR_ITS ---
WS: [id number] Examination: XR sacrum coccyx min 2V [id number] Reason for Exam: M54.50 - Low back pain, unspecified Date: 02/21/2024 Comparison: None. Findings: The bone density is maintained. There is no destruction. There is no destructive process of the sacrum. There is no angulated fracture. The SI joints are symm etric XR/XR sacrum coccyx min 2V [id number] Impression: No acute bony abnormality is appreciated. If pain continues further evaluation with CT of the pelvis may be of benefit..
== END 2024-02-21 08:27 | disposition home or self-care (01) ==
PROVIDERS: PCP Family Medicine; Visit Provider Nurse Practitioner Family
DX: M54.50 Low back pain, unspecified (principal)
CPT/HCPCS: 72100; 72220

== ENCOUNTER 2024-03-05 08:04 | Outpatient (CLI) | payer BC, MEDICAID, SELFPAY ==
--- NOTE | 2024-03-05 08:15 | CT_ITS ---
WS: [id number] CT ABDOMEN AND PELVIS WITH CONTRAST HISTORY: R10.30 - Lower abdominal pain, unspecified TECHNIQUE: Imaging performed of the abdomen and pelvis with IV contrast. Single phase imaging of the abdomen. Coronal and sagittal reformats are submitted. All CT scans at [facility] use at [address] one of these dose optimization techniques: automated exposure control; mA and/or kV adjustment per patient size (includes targeted exams where dose is matched to clinical indication); or iterative re construction. IV CONTRAST: Omnipaque 350; 100 mL IV. Oral contrast: Yes. DLP: 686.65 mGy.cm COMPARISON: 04/29/2021 Lower thorax: Lung bases are clear. Heart is normal size. No hiatal hernia. Liver/biliary system: Normal size with no intrahepatic dilatation. Gallbladder: Normal. No gallstones or wall thickening. No pericholecystic fluid. Pancreas: Normal size pancreas and pancreatic duct. No adjacent inflammation. Spleen: Normal size spleen. No mass or infarct. Adrenal glands: Normal. Right kidney: Normal. Left kidney: Normal. Aorta: Normal. Lymphadenopathy: None. Free fluid: None. GI tract: Normal stomach. No small bowel obstruction or wall thickening. Normal appendix. Mild diffus e constipation. Increasing fecal material at the rectal vault. No obstruction. Rectal diameter at its maximum is 6.6 cm. Abdominal wall: Fat containing umbilical hernia. Pelvis: No free fluid or adenopathy within the pelvis. Bones: Unremarkable. CT/CT abdomen pelvis w con* [id number] IMPRESSION: 1. Mild diffuse constipation with more advanced inspissated fecal material at the rectum. Rectal diameter 6.6 cm. 2. No adenopathy or ascites. 3. No renal obstruction.
[2024-03-05] MEDS: iohexol 350 mg/mL 500 mL Btl (per mL) PO (09:14)
[2024-03-05] MEDS: iohexol 350 mg/mL 500 mL Btl (per mL) IV (09:14)
== END 2024-03-05 08:05 | disposition home or self-care (01) ==
LOC: RAD 08:06
PROVIDERS: PCP Family Medicine; Visit Provider Nurse Practitioner Family
DX: R10.30 Lower abdominal pain, unspecified (principal); R30.0 Dysuria; M54.50 Low back pain, unspecified; Z87.442 Personal history of urinary calculi; K42.9 Umbilical hernia without obstruction or gangrene
CPT/HCPCS: 74177

== ENCOUNTER 2024-06-11 07:46 | Outpatient (CLI) | payer BC, MEDICAID, SELFPAY ==
--- NOTE | 2024-06-11 08:00 | MRR_ITS ---
PROCEDURE INFORMATION: Exam: MR Pelvis Without and With Contrast, Musculoskeletal Exam date and time: 06/11/2024 8:04 AM Age: 33 years old Clinical indication: Patient HX: Chronic posterior pelvic pain when sitting; Additional info: Continued pain despite multiple work ups. TECHNIQUE: Imaging protocol: Magnetic resonance imaging of the pelvis without and with contrast. Exam focused on the musculoskeletal system. Contrast material: MULTIHANCE; Contrast volume: 20 ml; Contrast route: INTRAVENOUS (IV); COMPARISON: CT abdomen pelvis w con* [id number] 03/05/2024 8:50 AM FINDINGS: Bones/joints: There is severe focal edema involving the coccyx consistent with stress fracture. No other bony or soft tissue abnormality is noted. Soft tissues: See Bones/joints finding. MR/MR pelvis wo/w con [id number] IMPRESSION: Healing stress fracture of the coccyx
[2024-06-11] MEDS: gadobenate dimeglumine 20 mL vial IV (08:31)
== END 2024-06-11 07:47 | disposition home or self-care (01) ==
LOC: RAD 07:46
PROVIDERS: PCP Family Medicine; Visit Provider Family Medicine
DX: S32.2XXA Fracture of coccyx, initial encounter for closed fracture (principal); X58.XXXA Exposure to other specified factors, initial encounter
CPT/HCPCS: 72197

== ENCOUNTER 2025-06-11 06:50 | Outpatient (CLI) | payer BC, MEDICAID, SELFPAY ==
--- NOTE | 2025-06-11 | XR_ITS ---
WS: [id number] Left foot, 3 views, 06/11/2025 Clinical Data: LEFT FOOT PAIN Comparison: None. Findings: No fractures or dislocations are seen. No bone destruction or erosion is noted. The joint spaces and soft tissues are normal. XR/XR foot LT min 3V* [id number] Impression: Negative left foot.
== END 2025-06-11 06:51 | disposition home or self-care (01) ==
LOC: RADOUTREAD 06-16 07:25
PROVIDERS: PCP Family Medicine; Visit Provider Electrodiagnostic Medicine
DX: M79.672 Pain in left foot (principal)